=== PATIENT | female | born 2005 | race Caucasian/White ===

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

== ENCOUNTER 2023-02-14 16:39 | Emergency (ER) | payer MEDICAID, SELFPAY ==
[2023-02-14 16:42] VITALS: BP 136/82; PULSE 77; RESP 20; TEMP 36.6; O2SAT 98
--- NOTE | 2023-02-14 16:45 | DI.RAD_ITS ---
Exam(s) XR ANKLE LT COMPLETE EXAM: XR ANKLE LT COMPLETE CLINICAL HISTORY: Achilles area pain TECHNIQUE: 2D digital imaging was performed of the left ankle. Three images were obtained. AP, lat eral and oblique views were obtained. COMPARISON: CR LEFT ANKLE COMPLETE from 05/02/2017 FINDINGS: BONES: No acute fracture is present. No bony destructive lesion is seen. There is an old well-circums cribed tiny density at the tip of the medial malleolus. JOINTS:The ankle mortise is normally aligned. SOFT TISSUE: Normal. IMPRESSION: No acute abnormality. DATA REPOSITORY: RADIATION DOSE DELIVERED:
--- NOTE | 2023-02-14 16:57 | W.ED.GENAD ---
Discharge Plan Disposition Patient Disposition: Home Condition: Stable Discharge Details Clinical Impression: Achilles tendinitis, left leg Primary Care Provider: Diamond Barnard ED Provider: Angy David Home Meds and New Rx's Prescriptions: No Action Mirena 20 mcg/24 hours (5 yrs) 52 mg intrauterine device 1 device IY ONCE bupropion HCl [Wellbutrin XL] 300 mg tablet extended release 24 hr 300 mg PO QAM Qty: 30 2RF Patient Comments: not taking clindamycin phosphate 1 % gel 1 applic TP BID Qty: 60 1RF Patient Comments: not taking epinephrine 0.3 mg/0.3 mL auto-injector 0.3 mg IM DIRECTED PRN (Reason: anaphylaxis) Qty: 1 0RF Discharge Instructions Instructions: Arthralgia (ED), Tendinitis (ED) Additional Instructions: The x-ray is within normal limits. Please use the walking boot as needed for discomfort. Rest ice compression elevation. Please take Tylenol or Ibuprofen with food every 4-6 hours as needed for pain and swelling. Follow up with primary care provider in 3-5 days. Return to ED sooner if any worsening or concerns. Increase oral fluids. You may follow-up with orthopedics if it continues to bother you. Referrals: Cj Reed MD [ [facility] STAFF PHYSICIAN] - 1 week Diamond Barnard MD [Primary Care Provider] - Medical Decision Making 17-year-old female presents to the ER with a chief complaint of left posterior ankle pain which has been worsening since playing lacrosse this afternoon. 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 She is complaining of some toe tingling. No obvious deformity. Ankle x-ray ordered ice and Tylenol. Differential diagnosis includes not limited to Achilles tendinitis exacerbation, ankle sprain, less likely Achilles tear or rupture. Mendiola test within normal limits. There is flexion with calf squeezing. Cap refill distal to injury is less than 2 seconds. X-ray is within normal limits. Patient was given a short walking boot, declined crutches. Patient tolerated well discussed home care and follow-up care they verbalized understanding. This text was generated using [employer] system, please disregard any oddities of phrase or misspellings. Medical Records Medical records reviewed: Yes I reviewed the patient's medical records. HPI General Mode of arrival: ambulatory. Date/Time Provider Initiated Documentation: 02/14/23 16:49. Limitations to Documentation: no limitations. Information obtained by: patient, RN notes reviewed and old records reviewed. HPI Narrative: 17-year-old female presents to the ER with a chief complaint of left posterior ankle pain which has been worsening since playing lacrosse this afternoon. 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 She is complaining of some toe tingling. No obvious deformity. She did take ibuprofen at 1245 this afternoon. Related Data Home Medications Medication Instructions Recorded Confirmed levonorgestrel 21 mcg/24 hours (8 1 device intrauterine ONCE 06/15/19 02/14/23 yrs) 52 mg intrauterine device (Mirena) clindamycin phosphate 1 % topical 1 applic topical BID #60 grams 01/06/21 11/02/22 gel epinephrine 0.3 mg/0.3 mL 0.3 mg (0.3 mL) IM DIRECTED PRN 03/04/22 02/14/23 injection, auto-injector anaphylaxis #1 ea bupropion HCl 300 mg 24 hr tablet, 300 mg PO QAM #30 tabs 04/07/22 11/02/22 extended release (Wellbutrin XL) Previous Rx's Medication Instructions Recorded clindamycin phosphate 1 % topical 1 applic topical BID #60 grams 01/06/21 gel epinephrine 0.3 mg/0.3 mL 0.3 mg (0.3 mL) IM DIRECTED PRN 03/04/22 injection, auto-injector anaphylaxis #1 ea bupropion HCl 300 mg 24 hr tablet, 300 mg PO QAM #30 tabs 04/07/22 extended release (Wellbutrin XL) Allergies Allergy/AdvReac Type Severity Reaction Status Date / Time hornet venom Allergy Severe Anaphylaxis Verified 02/14/23 16:46 venom-honey bee Allergy Severe Anaphylaxis Verified 02/14/23 16:46 insect venom Allergy Intermediate Other (See Verified 02/14/23 16:46 Comment) amoxicillin Allergy Mild RASH Verified 02/14/23 16:46 General Stated Complaint: Orthopedic STEVIE: 4 Review of Systems All systems reviewed & are unremarkable except as noted in HPI and below Musculoskeletal Musculoskeletal: Reports as per HPI, Reports abnormal gait, Reports arthralgias and Reports joint swelling Neurologic Neurologic: Reports abnormal gait PFSH All Active Problems (Updated 02/14/23 @ 17:56 by Angy David NP) Achilles tendinitis, left leg (Acute) Swelling of both ankles (Acute) Neuropathy of foot (Acute) Bee sting-induced anaphylaxis (Acute 04/15/18) Required 2 doses of epi, mom used epipen and ambulance gave her second dose. Was at [facility] ER wednesday night into Wednesday AM Dietary lactose intolerance (Acute) Bee sting allergy (Acute 04/20/18) anaphylactic reactions in past has epi-pen - knows how to use Depression with anxiety (Acute 04/16/17) Medical History Acne COVID Encounter for IUD insertion (~05/2019) Furuncle of axilla IUD (intrauterine device) in place Vulvar abscess 11/2014 L labium majora. Rx with Bactrim. 05/2016 recurrent lesion. Hidradenitis supprativa. Refer to [facility]. Family History Mother No problems noted. Father Mental disorder depression anxiety dx bipolar at one time Grandfather Alcohol abuse Cancer Grandmother No problems noted. Social History Smoking/Tobacco Use Status: Never Smoking risk assessment performed?: Yes Alcohol Intake: never Drug use: Never Substance use type: does not use Communication Needs: Corrective Lenses Education Level: college Details: [employer] Pets and animals: Yes (3 dogs, horses) Pets and animals: dog(s) and other Details: Horses Do you feel safe in your relationship?: Yes Additional Social history: Wears contact lenses Female Reproductive History Menstrual control method: progestin IUCD (Mirena IUD inserted 06/15/2019) History History 0 Para Hx # Term Pregnancies Multiple births Hx # Pregnancies Ectopic pregnancies AB induced Hx Number of Living Children AB spontaneous Exam Extrem Left lower extremity: ankle Details: swelling Details: posteriorly and achilles tendon exam abnormal (Mendiola test within normal limits) Details: tenderness to palpation Course Vital Signs Vital signs: Vital Signs Temperature 36.6 C 02/14/23 16:42 Pulse 77 02/14/23 16:42 Respiratory Rate 20 02/14/23 16:42 Blood Pressure 136/82 02/14/23 16:42 Pulse Oximetry 98 02/14/23 16:42 Temperature 36.6 C 02/14/23 16:42 Temperature Source Skin 02/14/23 16:42 Pulse 77 02/14/23 16:42 Respiratory Rate 20 02/14/23 16:42 Respiratory Effort Normal 02/14/23 16:46 Blood Pressure 136/82 02/14/23 16:42 Blood Pressure Position Sitting 02/14/23 16:42 Pulse Oximetry 98 02/14/23 16:42 Oxygen Delivery Method Room Air 02/14/23 16:42 Oxygen Flow Rate 0 02/14/23 16:42 Pain Level 3 02/14/23 16:47 Comment weight bearing pain rises to an 8 02/14/23 16:42
[2023-02-14] MEDS: Acetaminophen 325 MG TAB 650 MG PO (17:04)
--- NOTE | 2023-02-14 17:48 | DI.VRAD_ITS ---
PROCEDURE INFORMATION: Exam: XR Left Ankle Exam date and time: 02/14/2023 5:36 PM Age: 17 years old Clinical indication: Other: Achilles area pain TECHNIQUE: Imaging protocol: Radiologic exam of the left ankle. Views: 3 or more views. COMPARISON: CR LEFT ANKLE COMPLETE 07/01/2017 11:07 FINDINGS: Bones/joints: Unremarkable. Soft tissues: Unremarkable. IMPRESSION: No evidence for acute bony injury. If clinical symptoms persist recommend followup film in 7-10 days. Dictated and Authenticated by: Deedee Bradford MD. Ordering:JASMYN Travis MD
[2023-02-14 18:06] VITALS: BP 136/82; PULSE 77; RESP 20; TEMP 36.6; O2SAT 98
== END 2023-02-14 18:14 | disposition home or self-care (01) ==
PROVIDERS: Emergency Provider Registered Nurse Emergency
DX: M76.62 Achilles tendinitis, left leg (principal)
CPT/HCPCS: 29515; 81025; 99283; 73610; 99284

== ENCOUNTER 2023-06-07 03:53 | Outpatient (CLI) | payer MEDICAID, SELFPAY ==
[2023-06-09 13:43] LABS: TB Interpretation Negative (Negative); TB1 Ag minus Nil 0.02 IU/ml
== END 2023-06-07 03:54 | disposition home or self-care (01) ==
LOC: LBO 03:54
PROVIDERS: Visit Provider Student in an Organized Health Care Education/Training Program
DX: Z11.1 Encounter for screening for respiratory tuberculosis (principal)
CPT/HCPCS: 36415; 86480

== ENCOUNTER 2025-10-02 12:15 | Outpatient (REF) | payer BC, SELFPAY ==
--- NOTE | 2025-10-02 16:30 | PAPFT_PTH ---
PATIENT: Eugenia Temple LOC: [facility] U#:[id number] AGE/SX: 19/F ROOM: RE10/02/[address]: Yolanda Lopez NP : 2005 BED: DIS: 10/03/2025 SPEC #: [id number] RECD: 10/03/25 13:07 STATUS: MK LOYD #: [id number] RUSS: 10/02/25 16:[address]: Yolanda Lopez DEPT: [facility] Cytology RECD BY: Maryam Chavez Tissues: 1 - CX/ENDOCX FOR PAP SMEARS Procedures: PAP THIN PREP/[facility] Screening Comments: [id number] (CHLAMYDIA/GC)
[2025-10-04 11:32] LABS: Chlamydia Result Negative (Negative); GC Result Negative (Negative)
== END 2025-10-03 12:16 | disposition home or self-care (01) ==
LOC: LBN 12:15
PROVIDERS: PCP Nurse Practitioner Family; Visit Provider Nurse Practitioner Family
DX: Z12.4 Encounter for screening for malignant neoplasm of cervix (principal); Z11.3 Encounter for screening for infections with a predominantly sexual mode of transmission
CPT/HCPCS: 87491; 87591; 88142